=== PATIENT | male | born 2000 | race Caucasian/White ===

== ENCOUNTER 2019-05-11 04:20 | Emergency (ER) | payer OTHER ==
[~2019-05-11] VITALS: Ht 182.9 cm; Wt 83.6 kg
[2019-05-11] MEDS ORDERED: BACITRACIN 0.9 GM PACKET OINTMENT TP ONE (05:15)
[2019-05-11] MEDS ORDERED: BUPIVACAINE HCL/PF 0.25% 10 ML VIAL INJ ONE (05:15)
[2019-05-11] MEDS ORDERED: POVIDONE-IODINE 10% 15 ML SOLUTION UD ONE (05:15)
[2019-05-11 06:00] VITALS: BP 140/80
== END 2019-05-11 06:01 | disposition home or self-care (01) ==
LOC: EMS 04:23
DX: S31.21XA Laceration without foreign body of penis, initial encounter (principal); F12.90 Cannabis use, unspecified, uncomplicated; X58.XXXA Exposure to other specified factors, initial encounter; Y93.89 Activity, other specified; Y92.89 Other specified places as the place of occurrence of the external cause; Y99.8 Other external cause status
CPT/HCPCS: 12002; 99283; J3490

== ENCOUNTER 2023-07-10 13:27 | Emergency (ER) | payer OTHER ==
[~2023-07-10] VITALS: Ht 172.7 cm; Wt 83.0 kg
[2023-07-10 13:30] VITALS: BP 136/79; PULSE 75; RESP 16; TEMP 98
[2023-07-10 14:49] LABS: BASOPHILS % (AUTO) 0.7 % (0.0-2.0); EOSINOPHILS % (AUTO) 2.2 % (1.0-6.0); HEMOGLOBIN 14.5 g/dL (13.5-17.5); LYMPHOCYTES # (AUTO) 1.6 K/uL (1.0-4.8); LYMPHOCYTES % (AUTO) 30.9 % (22.0-44.0); MEAN CORPUSCULAR HEMOGLOBIN 30.6 pg (26.0-34.0); MEAN CORPUSCULAR HGB CONC 34.5 G/dL (31.0-37.0); MEAN CORPUSCULAR VOLUME 89 fL (80-100); MONOCYTES # (AUTO) 0.5 K/uL (0.1-1.0); MONOCYTES % (AUTO) 10.7 % (2.0-9.0); NEUTROPHILS # (AUTO) 2.8 K/uL (1.8-7.7); NEUTROPHILS % (AUTO) 55.5 % (40.0-70.0); PLATELET COUNT (AUTO) 220 K/uL (150-450); RED BLOOD CELL COUNT(AUTO) 4.73 MIL/uL (4.50-5.90); RED CELL DISTRIBUTION WIDTH 12.9 % (11.5-14.5)
[2023-07-10 14:51] LABS: ANION GAP 9 mmol/L (8-16); CALCIUM, TOTAL 8.4 mg/dL (8.8-10.5); CARBON DIOXIDE 29 mmol/L (22-29); CHLORIDE 102 mmol/L (98-107); CREATININE 0.99 mg/dL (0.60-1.30); GLOMERULAR FILTR. RATE CALC > 60 mL/min (>60); GLUCOSE,RANDOM 99 mg/dL (70-110); POTASSIUM 3.7 mmol/L (3.5-5.1); SODIUM SERUM 140 mmol/L (136-145); UREA NITROGEN, BLOOD 8 mg/dL (7-18)
[2023-07-10 14:56] LABS: ALANINE AMINOTRANSFERASE 37 U/L (12-78); ALBUMIN 3.7 g/dL (3.4-5.0); ALKALINE PHOSPHATASE 82 U/L (46-116); ASPARTATE AMINOTRANSFERASE 20 U/L (15-37); BILIRUBIN,TOTAL 0.7 mg/dL (0.1-1.0); TOTAL PROTEIN, SERUM 7.1 g/dL (6.4-8.2)
== END 2023-07-10 17:07 | disposition home or self-care (01) ==
LOC: EMS 14:29
DX: R10.32 Left lower quadrant pain (principal); M25.512 Pain in left shoulder; F12.90 Cannabis use, unspecified, uncomplicated
CPT/HCPCS: 70450; 72125; 74176; 80053; 85025; 99284